=== PATIENT | female | born 1995 | race Two or more races ===

== ENCOUNTER 2023-05-27 14:07 | Outpatient (CLI) | payer OTHER | END 2023-05-27 16:04 | disposition home or self-care (01) | LOC: PRENATAL 14:07 | PROVIDERS: ATTEND Obstetrics & Gynecology Maternal & Fetal Medicine | DX: O35.3XX0 Maternal care for (suspected) damage to fetus from viral disease in mother, not applicable or unspecified (principal); O44.00 Complete placenta previa NOS or without hemorrhage, unspecified trimester; Z3A.23 23 weeks gestation of pregnancy ==